=== PATIENT | female | born 1940 | race African-American/Black ===

== ENCOUNTER 2020-12-09 17:31 | Emergency (ER) | payer OTHER ==
[~2020-12-09] VITALS: Ht 188 cm; Wt 94.0 kg
[2020-12-09 18:43] LABS: HEMATOCRIT. 26.5 % (36.0-48.0); HEMOGLOBIN. 9.2 g/dL (12.0-16.0); MEAN CORPUSCULAR HEMOGLOBIN 33.4 pg (28.0-32.0); MEAN PLATELET VOLUME 10.7 fl (7.4-10.4); PLATELET 115 x1000/uL (130-400); RED BLOOD CELL COUNT 2.76 mill/uL (4.2-5.4); RED CELL DISTRIBUTION WIDTH 18.4 % (11.6-14.6)
[2020-12-09] MEDS ORDERED: SODIUM CHLORIDE 0.9% 250 ML IV ONE (18:45)
[2020-12-09 18:53] LABS: CHLORIDE 95 mEq/L (98-107)
[2020-12-09 22:24] LABS: PLATELET ESTIMATE DECREASED
[2020-12-10 01:30] VITALS: BP 102/50
== END 2020-12-10 04:11 | disposition short-term general hospital (02) ==
LOC: ER 17:31
DX: K85.90 Acute pancreatitis without necrosis or infection, unspecified (principal); R55 Syncope and collapse; J90 Pleural effusion, not elsewhere classified; R62.7 Adult failure to thrive; Z68.26 Body mass index [BMI] 26.0-26.9, adult; I12.0 Hypertensive chronic kidney disease with stage 5 chronic kidney disease or end stage renal disease; N18.6 End stage renal disease; J98.11 Atelectasis; Z99.2 Dependence on renal dialysis; Z96.641 Presence of right artificial hip joint; Z79.899 Other long term (current) drug therapy; C22.8 Malignant neoplasm of liver, primary, unspecified as to type
CPT/HCPCS: 36415; 71045; 74176; 80053; 83690; 85025; 93005; 96360; 99285; J7030